=== PATIENT | female | born 1975 | race Caucasian/White ===

== ENCOUNTER → 2017-11-05 | Emergency (ER) | payer OTHER, SELFPAY | PROVIDERS: Emergency Provider Nurse Practitioner; Family Provider Emergency Medicine; Visit Provider Nurse Practitioner | DX: J09.X2 Influenza due to identified novel influenza A virus with other respiratory manifestations (principal) | CPT/HCPCS: 87804; 99201 ==

== ENCOUNTER 2017-11-10 09:26 | Emergency (ER) | payer OTHER, SELFPAY ==
[2017-11-10 10:02] VITALS: BP 148/88; PULSE 98; RESP 20; TEMP 36.8; O2SAT 95; BMI 47.2
[2017-11-10 10:23] LABS: UTC Influenza A Antigen Negative (Negative); UTC Influenza B Antigen Negative (Negative)
--- NOTE | 2017-11-10 10:38 | HMH.EDUTC ---
[facility] Disposition Clinical Impression: Viral illness Disposition: Home, Self-Care Condition on Discharge: Good Instructions: DI for Viral Upper Respiratory Infection -- Adult Additional Instructions: Drink plenty of fluids Follow up with family doctor Return if needed Over the counter Motrin or Tylenol as needed for fever or pain Continue using flonase and bromfed Referrals: Delmer Bullard MD [Primary Care Provider] - Time of Disposition: 10:48 Medical Decision Making Vital Signs: 11/10/17 10:02 Temperature 98.2 F Temperature Source Skin Pulse Rate [Right] 98 H Respiratory Rate 20 Blood Pressure [Right Arm] 148/88 Blood Pressure Mean [Right Arm] 108 Blood Pressure Source [Right Arm] Automatic Cuff Blood Pressure Position [Right Arm] Sitting 02 Sat by Pulse Oximetry 95 Oxygen Delivery Method Room Air - Lab Data Lab Results 11/10/17 10:22: Influenza Type A Ag Negative, Influenza Type B Ag Negative - Cristi Inquiry Pt receiving controlled substance: No Cristi was queried for this patient: No [facility] HPI - General Stated complaint: nose bleeding Mode of Arrival: Ambulatory Source of Information: Patient Limitations: No Limitations Description of Symptoms (Recalled from Triage Doc. by RN): FLU POS LAST WEDNESDAY, FINISHED TAMIFLU TODAY, NOT FEELING BETTER HEENT Symptoms (Recalled from RN notes): No Resp Symptoms (Recalled from RN notes): No Skin Symptoms (Recalled from RN notes): No MS Symptoms (Recalled from RN notes): No Functional Status (Recalled from RN notes): NO - History of Present Illness Provider Complaint: Patient state that she was recently seen and treated for the flu State that she just finished her last dose of Tamiflu State that she came back to work and still had stuffy nose so aileen was worried that she may have still had the flu and wanted her to come down and get checked out Onset (ago): day(s) (7) Radiation: non-radiation Severity: mild Severity scale (1-10): 2 Relieving factors: none Exacerbating factors: none Treatments prior to arrival: NSAID, other (Tamiflu) - Related Data Allergies Allergy/AdvReac Type Severity Reaction Status Date / Time No Known Allergies Allergy Verified 11/10/17 10:07 - Worker's Comp Is this a Worker's Comp case?: No [facility] History - *Social History Alcohol Intake: never - Psychiatric History Expresses thoughts of harming self/others: None Suicide Plan Description: No Plan - Constitutional Reports chills, Reports fever(s) - ENT Reports nasal congestion - Respiratory Reports cough Physical Exam - General General appearance: alert, in no apparent distress - Neck Neck exam: Present: normal inspection, full ROM, trachea midline - Respiratory Respiratory exam: Present: normal lung sounds bilaterally. Absent: respiratory distress - Cardiovascular Cardiovascular exam: Present: regular rate, normal rhythm. Absent: JVD - Abdominal Exam Abdominal exam: Present: soft, normal bowel sounds. Absent: distention, tenderness, guarding - Neurological Exam Neurological exam: Present: alert, oriented X3
--- NOTE | 2017-11-10 10:43 | ED_ITS ---
[facility] Disposition Clinical Impression: Viral illness Disposition: Home, Self-Care Condition on Discharge: Good Instructions: DI for Viral Upper Respiratory Infection -- Adult Additional Instructions: Drink plenty of fluids Follow up with family doctor Return if needed Over the counter Motrin or Tylenol as needed for fever or pain Continue using flonase and bromfed Referrals: Delmer Bullard MD [Primary Care Provider] - Time of Disposition: 10:48 Medical Decision Making Vital Signs: 11/10/17 10:02 Temperature 98.2 F Temperature Source Skin Pulse Rate [Right] 98 H Respiratory Rate 20 Blood Pressure [Right Arm] 148/88 Blood Pressure Mean [Right Arm] 108 Blood Pressure Source [Right Arm] Automatic Cuff Blood Pressure Position [Right Arm] Sitting 02 Sat by Pulse Oximetry 95 Oxygen Delivery Method Room Air - Lab Data Lab Results 11/10/17 10:22: Influenza Type A Ag Negative, Influenza Type B Ag Negative - Cristi Inquiry Pt receiving controlled substance: No Cristi was queried for this patient: No [facility] HPI - General Stated complaint: nose bleeding Mode of Arrival: Ambulatory Source of Information: Patient Limitations: No Limitations Description of Symptoms (Recalled from Triage Doc. by RN): FLU POS LAST WEDNESDAY, FINISHED TAMIFLU TODAY, NOT FEELING BETTER HEENT Symptoms (Recalled from RN notes): No Resp Symptoms (Recalled from RN notes): No Skin Symptoms (Recalled from RN notes): No MS Symptoms (Recalled from RN notes): No Functional Status (Recalled from RN notes): NO - History of Present Illness Provider Complaint: Patient state that she was recently seen and treated for the flu State that she just finished her last dose of Tamiflu State that she came back to work and still had stuffy nose so aileen was worried that she may have still had the flu and wanted her to come down and get checked out Onset (ago): day(s) (7) Radiation: non-radiation Severity: mild Severity scale (1-10): 2 Relieving factors: none Exacerbating factors: none Treatments prior to arrival: NSAID, other (Tamiflu) - Related Data Allergies Allergy/AdvReac Type Severity Reaction Status Date / Time No Known Allergies Allergy Verified 11/10/17 10:07 - Worker's Comp Is this a Worker's Comp case?: No [facility] History - *Social History Alcohol Intake: never - Psychiatric History Expresses thoughts of harming self/others: None Suicide Plan Description: No Plan - Constitutional Reports chills, Reports fever(s) - ENT Reports nasal congestion - Respiratory Reports cough Physical Exam - General General appearance: alert, in no apparent distress - Neck Neck exam: Present: normal inspection, full ROM, trachea midline - Respiratory Respiratory exam: Present: normal lung sounds bilaterally. Absent: respiratory distress - Cardiovascular Cardiovascular exam: Present: regular rate, normal rhythm. Absent: JVD - Abdominal Exam Abdominal exam: Present: soft, normal bowel sounds. Absent: distention, tenderness, guarding - Neurological Exam Neurological exam: Present: alert, oriented X3
== END 2017-11-10 11:02 | disposition home or self-care (01) ==
PROVIDERS: Emergency Provider Nurse Practitioner; Family Provider Emergency Medicine; PCP Emergency Medicine
DX: B34.9 Viral infection, unspecified (principal)
CPT/HCPCS: 87276; 87804; 99202

== ENCOUNTER → 2019-07-25 15:35 | Outpatient (CLI) | payer OTHER, SELFPAY ==
[2019-07-25 15:37] LABS: Microscopic, Urine URINE MICROSCOPIC (MICROSCOPIC)
[2019-07-25 15:55] LABS: Basophils # 0.1 K/mm3 (0-0.2); Basophils % 0.7 % (0.1-2.0); Eosinophils # 0.2 K/mm3 (0.0-0.4); Eosinophils % 2.5 % (0.1-12.0); Hematocrit 40.3 % (37.0-47.0); Lymphocytes # 2.6 K/mm3 (0.7-4.5); Lymphocytes % 27.4 % (10-50); Mean Corpuscular HGB Conc 32.4 g/dL (31.8-35.4); Mean Corpuscular Hemoglobin 28.3 pg (27.0-31.2); Mean Corpuscular Volume 87.3 fl (81-99); Mean Platelet Volume 9.1 fl (7.4-10.4); Monocytes # 0.6 K/mm3 (0.1-1.0); Monocytes % 6.3 % (1.7-9.3); Neutrophils # 5.9 K/mm3 (1.8-7.8); Neutrophils % 63.2 % (37.0-80.0); Platelet Count 249 K/mm3 (142-424); Red Blood Count 4.62 M/mm3 (4.20-5.40); Red Cell Distribution Width 13.8 % (11.5-17.5); White Blood Count 9.4 K/mm3 (4.8-10.8)
[2019-07-25 15:58] LABS: Appearance,Urine CLEAR (Clear); Bilirubin,Urine Negative (Negative); Blood, Urine Negative (Negative); Color,Urine YELLOW (Yellow); Glucose,Urine (UA) Negative (Negative); Ketones,Urine Negative (Negative); Leukocyte Esterase,Urine Negative (Negative); Nitrate,Urine Negative (Negative); Protein,Urine Negative (Negative); Specific Gravity, Urine 1.025 (1.005-1.030); Urobilinogen,Urine 0.2 EU/dl (0.2)
[2019-07-25 16:46] LABS: Anion Gap 13.2 mEq/L (5-15); Blood Urea Nitrogen 15 mg/dL (7-18); Carbon Dioxide 29 mmol/L (21.0-32.0); Chloride 102 mmol/L (98-107); Creatinine,Serum 1.19 mg/dL (0.55-1.02); Estimated Glomerular Filt Rate 50 ml/min (>60); Potassium 4.2 mmoL/L (3.5-5.1); Sodium 140 mmol/L (136-145)
[2019-07-25 16:47] LABS: Calcium 8.9 mg/dL (8.5-10.1); GFR (African American) 60 ML/MIN (>60); Glucose 90 mg/dL (74-106)
[2019-07-25 17:10] LABS: Bacteria,Urine 2+ /lpf; RBC,Urine Occasional #/hpf (0-3)
== END ==
PROVIDERS: Visit Provider Surgery
DX: Z87.19 Personal history of other diseases of the digestive system (principal); Z98.890 Other specified postprocedural states; R10.9 Unspecified abdominal pain
CPT/HCPCS: 36415; 80048; 81001; 85025; 87086; 87088; 87186

== ENCOUNTER → 2019-07-26 10:02 | Outpatient (CLI) | payer OTHER, SELFPAY ==
--- NOTE | 2019-07-26 10:03 | CT_ITS ---
PROCEDURE: CT ABDOMEN PELVIS W CON CLINICAL HISTORY: abdominal pain/ history of abdominal hernia repair Abdominal pain, mid epigastric pain with nausea vomiting COMPARISON: ABDPELW CT ABD PELVIS W/ CONTRAST from 03/06/2016 TECHNIQUE: 75 mL Optiray 350 Axial images obtained with sagittal and coronal reformats. All CT scans at the facility use one or more dose reduction, viz: automated exposure control, ma/kV adjustment per patient size (including targeted exams where dose is matched to indication, i.e. head), or iterative reconstruction technique. FINDINGS: The lung bases are clear. Prior cholecystectomy. Mild fatty liver no acute. No focal liver lesion apparent. The spleen, adrenal glands, and pancreas have an unremarkable appearance. There is a 4 cm right renal cyst. No renal or ureteral calculi. No hydronephrosis. No evidence of appendicitis. No intestinal obstruction or free air. There is an IUD in place. No pelvic mass abnormal fluid collection or focal inflammatory change of the pelvis. There is a sclerotic area in the right ilium posteriorly unchanged and may represent a bone island. IMPRESSION: No acute abdominal or pelvic findings Dictated by: Иван Uribe MD 07/27/2019 05:33 Electronically signed by Иван Uribe MD in [place] 07/27/2019 05:33
== END ==
PROVIDERS: PCP Emergency Medicine; Visit Provider Surgery
DX: Z01.818 Encounter for other preprocedural examination (principal); K46.9 Unspecified abdominal hernia without obstruction or gangrene
CPT/HCPCS: 74177; Q9967

== ENCOUNTER → 2019-08-28 14:48 | Outpatient (CLI) | payer OTHER, SELFPAY ==
[2019-08-28 16:03] LABS: Alanine Aminotransferase 23 U/L (12-78); Albumin Level 3.8 gm/dL (3.4-5.0); Albumin/Globulin Ratio 1.1 (1.1-1.8); Alkaline Phosphatase 68 U/L (46-116); Anion Gap 14.3 mEq/L (5-15); Aspartate Amino Transferase 16 U/L (15-37); Bilirubin,Total 0.3 mg/dL (0.2-1.0); Blood Urea Nitrogen 13 mg/dL (7-18); Calcium 9.3 mg/dL (8.5-10.1); Carbon Dioxide 29 mmol/L (21.0-32.0); Chloride 103 mmol/L (98-107); Creatinine,Serum 0.94 mg/dL (0.55-1.02); Estimated Glomerular Filt Rate 65 ml/min (>60); GFR (African American) 79 ML/MIN (>60); Globulin 3.5 gm/dl (1.3-3.2); Glucose 106 mg/dL (74-106); Potassium 4.3 mmoL/L (3.5-5.1); Sodium 142 mmol/L (136-145); Total Protein,Serum 7.3 gm/dL (6.4-8.2)
== END ==
PROVIDERS: Visit Provider Surgery
DX: R10.33 Periumbilical pain (principal)
CPT/HCPCS: 36415; 80053

== ENCOUNTER → 2019-09-08 16:49 | Outpatient (CLI) | payer OTHER, SELFPAY ==
[2019-09-08 18:07] LABS: Free T4 (Free Thyroxine) 1.22 ng/dl (0.76-1.46); Thyroid Stimulating Hormone 2.32 uIU/ml (0.358-3.740)
== END ==
PROVIDERS: Visit Provider Nurse Practitioner Family
DX: E66.01 Morbid (severe) obesity due to excess calories (principal); Z68.43 Body mass index [BMI] 50.0-59.9, adult
CPT/HCPCS: 84439; 84443

== ENCOUNTER 2020-11-15 09:00 | Emergency (ER) | payer OTHER, SELFPAY ==
[2020-11-15 09:10] VITALS: BP 147/87; PULSE 84; RESP 20; TEMP 36.9; O2SAT 99; BMI 47.5
[2020-11-15 09:40] LABS: Apearance,Urine Clear (Clear); Bilirubin,Urine Negative (Negative); Blood, Urine Negative (Negative); Color,Urine Yellow (Yellow); Glucose,Urine (UA) Negative (Negative); Ketones,Urine Negative (Negative); Protein,Urine Negative (Negative); UTC Leukocyte Esterase,Urine Negative (Negative); UTC Nitrate,Urine Negative (Negative); Urobilinogen,Urine 1 EU/dl (0.2)
--- NOTE | 2020-11-15 09:51 | HMH.EDUTC ---
[facility] [place] Clinical Impression: Dysuria Low back pain Qualifiers: Chronicity: acute Back pain laterality: right Sciatica presence: without sciatica Qualified Code(s): M54.5 - Low back pain Disposition: Home, Self-Care Condition on Discharge: Good Additional Instructions: Drink plenty of fluids. Take tylenol or ibuprofen for pain or fever. Take the medications as directed. Follow up with your regular doctor. GO TO THE ER FOR ANY WORSENING SYMPTOMS The pyridium will make your urine turn orange, this is an expected side effect. It will stain your clothes if it comes into contact with them. Prescriptions: Sulfamethoxazole/Trimethoprim [Bactrim DS tablet] 1 each PO BID 7 Days #14 tab Transmission Status: Received by [id number] Phenazopyridine HCl [Pyridium 200mg Tablet] 200 pow PO TID #6 tab Transmission Status: Received by [id number] Referrals: Delmer Bullard MD [Primary Care Provider] - Time of Disposition: 09:53 Medical Decision Making - Medical Records Medical records reviewed: No: I reviewed the patient's medical records. - Cristi Inquiry Pt receiving controlled substance: No Vital Signs: 11/15/20 09:10 11/15/20 09:57 Temperature 98.5 F 98.5 F Temperature Source Oral Pulse Rate 84 Pulse Rate [Right Brachial] 84 Respiratory Rate 20 20 Blood Pressure 147/87 H Blood Pressure [Right Arm] 147/87 H Blood Pressure Mean [Right Arm] 107 Blood Pressure Source [Right Arm] Automatic Cuff Blood Pressure Position [Right Arm] Sitting 02 Sat by Pulse Oximetry 99 Oxygen Delivery Method Room Air - Lab Data Lab results reviewed: Yes: I reviewed the patient's lab results. Lab Results 11/15/20 09:10: Urine Color Yellow, Urine Appearance Clear, Urine pH 7.0, Ur Specific [place] 1.020, Urine Protein Negative, Urine Glucose (UA) Negative, Urine Ketones Negative, Urine Blood Negative, Urine Nitrate Negative, Urine Bilirubin Negative, Urine Urobilinogen 1, Ur Leukocyte Esterase Negative Orders (Tests/Meds): ORDERS Category Date Time Status Urine Culture Stat Micro 11/15/20 09:13 Received [facility] [place] - General Stated complaint: uti symptoms Time Seen by Provider: 11/15/20 09:15 Mode of Arrival: Ambulatory Source of Information: Patient Limitations: No Limitations Description of Symptoms (Recalled from Triage Doc. by RN): PATIENT C/O BURNING WITH URINATION AND PAIN IN LOWER BACK AND RIGHT FLANK AREA X 2 DAYS HEENT Symptoms (Recalled from RN notes): No Resp Symptoms (Recalled from RN notes): No Skin Symptoms (Recalled from RN notes): No MS Symptoms (Recalled from RN notes): No Functional Status (Recalled from RN notes): WNL - History of Present Illness Provider Complaint: She c/o burning while urinating and right sided low back pain since yesterday. She thinks that she has a uti. She denies any fever or chills. - Related Data Previous Rx's Medication Instructions Recorded metformin 500 mg tablet See Rx Instructions .ROUTE 07/27/20 .COMPLEX #90 tab phentermine 37.5 mg capsule 37.5 mg PO DAILY #30 cap 10/01/20 Phenazopyridine HCl [Pyridium 200 pow PO TID #6 tab 11/15/20 200mg Tablet] Sulfamethoxazole/Trimethoprim 1 each PO BID 7 Days #14 tab 11/15/20 [Bactrim DS tablet] Allergies Allergy/AdvReac Type Severity Reaction Status Date / Time No Known Allergies Allergy Verified 10/01/20 16:04 - Worker's Comp Is this a Worker's Comp case?: No [facility] History - Hepatitis A Screen Drug use history?: No High risk sexual behaviors?: No History of sexually transmitted infection?: No Currently employed?: No Childcare worker?: No Do you have indoor plumbing?: Yes Do you have electricity?: Yes Attestation statement:: This patient has been screened for Hepatitis A risk factors. I have reviewed the patient's past medical history: Yes Medical History: Denies:: Diabetes Mellitus Type 1, Diabetes Mellitus Type 2 [place]
[2020-11-15 09:57] VITALS: BP 147/87; PULSE 84; RESP 20; TEMP 36.9; O2SAT 99
== END 2020-11-15 09:59 | disposition home or self-care (01) ==
PROVIDERS: Emergency Provider Nurse Practitioner Family; PCP Emergency Medicine
DX: R30.0 Dysuria (principal); M54.5 Low back pain
CPT/HCPCS: 81003; 87086; 99202; G0463

== ENCOUNTER → 2021-12-02 06:21 | Outpatient (CLI) | payer OTHER, SELFPAY ==
[2021-12-02 06:50] LABS: Influenza A, PCR Not Detected (NotDetected); Influenza B, PCR Not Detected (NotDetected)
[2021-12-02 07:15] LABS: Coronavirus 19, PCR Detected (NotDetected)
== END ==
PROVIDERS: PCP Emergency Medicine; Visit Provider Emergency Medicine
DX: U07.1 COVID-19 (principal)
CPT/HCPCS: C9803; U0003; U0005

== ENCOUNTER 2022-01-11 10:50 | Emergency (ER) | payer OTHER, SELFPAY ==
[2022-01-11 11:20] VITALS: BP 129/85; PULSE 91; RESP 21; TEMP 37.2; O2SAT 98; BMI 52.4
[2022-01-11 11:33] LABS: UTC Strep Screen (Rapid) Negative (Negative)
--- NOTE | 2022-01-11 11:52 | HMH.EDUTC ---
[facility] [place] Disposition Clinical Impression: Sinusitis Qualifiers: Sinusitis location: maxillary Chronicity: acute Recurrence: non-recurrent Qualified Code(s): J01.00 - Acute maxillary sinusitis, unspecified Disposition: Home, Self-Care Condition on Discharge: Good Instructions: DI for Sinusitis Additional Instructions: Start antibiotic patient to take as ordered for a full length of time even if you feel better. Sinus infections do not get better overnight. It may take 2-3 days to notice much improvement so be sure to use conservative measures as discussed for symptoms. Flonase 1 spray each nostril daily to help with nasal congestion, sinus and ear pressure/information Increase fluids Humidifier/vaporizer as needed Tylenol and ibuprofen as needed for fever or pain. If symptoms do not improve or get worse return or be seen in the ER Follow-up with primary care this week Prescriptions: predniSONE [Prednisone 20mg Tab] 20 mg PO BID #10 tab Transmission Status: Pending to [id number] Azithromycin [Zithromax 250mg tab] 250 mg PO DIRECTED #6 tab Transmission Status: Pending to [id number] Referrals: Delmer Bullard MD [Primary Care Provider] - Time of Disposition: 11:55 Medical Decision Making - Cristi Inquiry Pt receiving controlled substance: No Vital Signs: 01/11/22 11:20 Temperature 98.9 F Temperature Source Oral Pulse Rate [Right Brachial] 91 H Respiratory Rate 21 Blood Pressure [Right Arm] 129/85 Blood Pressure Mean [Right Arm] 99 Blood Pressure Source [Right Arm] Automatic Cuff Blood Pressure Position [Right Arm] Sitting 02 Sat by Pulse Oximetry 98 Oxygen Delivery Method Room Air - Lab Data Lab Results 01/11/22 11:20: Strep Scn Rapid Clinic Negative Orders (Tests/Meds): ED MEDICATIONS Discontinued Medications Generic Name Dose Route Start Last Admin Trade Name Freq PRN Reason Stop Dose Admin Ceftriaxone Sodium 1 gm 01/11/22 11:45 Ceftriaxone 1gm Vial IM 01/11/22 11:46 ONCE ONE Dexamethasone Sodium Phosphate 4 mg 01/11/22 11:45 Dexamethasone 4mg/Ml 1ml Vial IM 01/11/22 11:46 ONCE ONE Lidocaine HCl 0 ml 01/11/22 11:45 Lidocaine 1% 5ml Pf Vial IM 01/11/22 11:46 ONCE ONE ORDERS Category Date Time Status Strep Screen Confirmation Stat Micro 01/11/22 11:20 Received [facility] [place] HPI - General Chief complaint: Urgent Treatment Center Stated complaint: sore throat, cough, congestion Time Seen by Provider: 01/11/22 11:52 Mode of Arrival: Ambulatory Source of Information: Patient Limitations: No Limitations Description of Symptoms (Recalled from Triage Doc. by RN): PATIENT C/O COUGH, RUNNY NOSE, SINUS PRESSURE AND SORE THROAT X 3 DAYS HEENT Symptoms (Recalled from RN notes): Yes Resp Symptoms (Recalled from RN notes): Yes Skin Symptoms (Recalled from RN notes): No MS Symptoms (Recalled from RN notes): No Functional Status (Recalled from RN notes): WNL - History of Present Illness Provider Complaint: 46 yr old female presents for coughing up yellow/green sputum, nasal congestion,sinus pressure, horseness, and sore throat - Related Data Previous Rx's Medication Instructions Recorded amoxicillin 875 mg-potassium 1 tab PO Q12H 10 Days #20 tab 03/10/21 clavulanate 125 mg tablet Amoxicillin/Potassium Clav 1 tab PO Q12H 10 Days #20 tab 07/18/21 [Augmentin 875-125 Tablet] Benzonatate [Tessalon Perle 100mg 100 mg PO TIDP PRN #30 cap 07/18/21 Cap] Ondansetron [Zofran 4mg ODT] 4 mg PO DAILYP PRN #12 tab 07/18/21 methylPREDNISolone [Medrol] 4 mg PO DIRECTED 6 Days #21 07/18/21 packet Azithromycin [Zithromax 250mg 250 mg PO DIRECTED #6 tab 01/11/22 tab] predniSONE [Prednisone 20mg 20 mg PO BID #10 tab 01/11/22 Tab] Allergies Allergy/AdvReac Type Severity Reaction Status Date / Time No Known Allergies Allergy Verified 03/10/21 18:33 - Worker's Comp Is this a Worker's
[2022-01-11 12:05] VITALS: BP 129/85; PULSE 91; RESP 21; TEMP 37.2; O2SAT 98
== END 2022-01-11 12:10 | disposition home or self-care (01) ==
PROVIDERS: Emergency Provider Nurse Practitioner Family; PCP Emergency Medicine
DX: J01.00 Acute maxillary sinusitis, unspecified (principal); Z79.51 Long term (current) use of inhaled steroids; Z79.52 Long term (current) use of systemic steroids; Z79.899 Other long term (current) drug therapy
CPT/HCPCS: 87880; 96372; 99213; G0463; J0696

== ENCOUNTER 2022-11-29 16:22 | Emergency (ER) | payer OTHER, SELFPAY ==
[2022-11-29 16:31] VITALS: BP 143/96; PULSE 89; RESP 17; TEMP 37; O2SAT 98; BMI 52.2
--- NOTE | 2022-11-29 16:33 | EXP.UTC ---
Discharge Plan Disposition Patient Disposition: Home, Self-Care Condition: Good Prescriptions Prescriptions: New amoxicillin 875 mg tablet 875 mg PO Q12H 10 Days Qty: 20 0RF methylprednisolone [Medrol (Ovidio)] 4 mg tablets,dose pack See Rx Instructions .Route .COMPLEX 6 Days Qty: 21 0RF Rx Instructions: taper pack; ofloxacin 0.3 % drops 10 drp otic (ear) BID 14 Days Qty: 10 0RF No Action amoxicillin-pot clavulanate [Augmentin] 875-125 mg tablet 1 tab PO Q12H 10 Days Qty: 20 0RF azithromycin 250 MG tablet 250 mg PO DIRECTED Qty: 6 0RF Rx Instructions: Take two (2) tablets on day #1, then one (1) tablet day #2 thru #5 prednisone 20 MG tablet 20 mg PO BID Qty: 10 0RF benzonatate 100 MG capsule 100 mg PO TIDP PRN (Reason: Cough) Qty: 30 0RF methylprednisolone 4 MG tablets,dose pack 4 mg PO DIRECTED 6 Days Qty: 21 0RF ondansetron 4 MG tablet,disintegrating 4 mg PO DAILYP PRN (Reason: Nausea) Qty: 12 0RF amoxicillin-pot clavulanate 1 EACH tablet 1 tab PO Q12H 10 Days Qty: 20 0RF Referrals Follow up/Referrals: Delmer Bullard MD [Primary Care Provider] - See instructions Activity Restrictions/Add. Instructions Additional Instructions/Restrictions: *Monitor Temp, Over the counter Motrin or Tylenol as directed/as needed Tylenol every 4 hours and Motrin every 6 hours (as long as your family doctor has told you that you can take it) for fever or pain. and straight to ER if unable to lower temp less than 101.0 after medication given *Warm salt water gargles may help to soothe the throat *Throat Lozenges? *Warm fluids like tea with honey may help to soothe the throat? *Sleep elevated *Humidifier/Vaporizer Your throat swab was sent for culture. Those results are typically sent to your primary care. Be sure to follow up in 2-3 days with your family doctor/primary care physician if no improvement so they can review those result and treat if necessary. If you don?t have a primary care doctor, I recommend you get one but in the mean time, you will have to return to a walk in clinic Follow up IMMEDIATELY for new or worsening symptoms or no Noticeable improvement over the next 48-72 hours. 911 for difficulty breathing or swallowing Clinical Impressions Clinical Impression: Otitis media Qualifiers: Otitis media type: unspecified Laterality: right Qualified Code(s): H66.91 - Otitis media, unspecified, right ear Instructions Patient Instructions: Middle Ear Infection, Amoxicillin Discharge ED Provider: Janett Moreira [facility] General Stated complaint: RT ear pain, sore throat Mode of Arrival: Ambulatory Source of Information: Patient Limitations: No Limitations Time Seen by Provider: 11/29/22 16:33 Description of Symptoms (Recalled from Triage Doc. by RN): PATIENT C/O SORE THROAT AND RIGHT EAR PAIN SINCE WEDNESDAY HEENT Symptoms (Recalled from RN notes): Yes Resp Symptoms (Recalled from RN notes): No Skin Symptoms (Recalled from RN notes): No MS Symptoms (Recalled from RN notes): No Functional Status (Recalled from RN notes): WNL History of Present Illness Provider Complaint: Patient states that she has been having sore throat and ear pain since Wednesday that has continued to get worse State that pain in right ear feels like it is going to bust States that pain is shooting from her ear into her throat and has pressure behind it so today when it was still hurting she came in Related Data Previous Rx's Medication Instructions Recorded amoxicillin 875 mg-potassium 1 tab PO Q12H sinusitis 10 days 03/10/21 clavulanate 125 mg tablet #20 tabs (Augmentin) amoxicillin 875 mg-potassium 1 tab PO Q12H 10 days #20 tabs 07/18/21 clavulanate 125 mg tablet benzonatate 100 mg capsule 100 mg PO TIDP PRN Cough #30 caps 07/18/21 methylprednisolone 4 mg tablets in 4 mg PO DIRECTED 6 days #21 07/18/21 a dose pack packets ondansetron 4 m
[2022-11-29 16:37] VITALS: BP 143/96; PULSE 89; RESP 17; TEMP 37; O2SAT 98
== END 2022-11-29 16:50 | disposition home or self-care (01) ==
PROVIDERS: Emergency Provider Nurse Practitioner; PCP Emergency Medicine
DX: H66.91 Otitis media, unspecified, right ear (principal)
CPT/HCPCS: 99212; 99213; G0463

== ENCOUNTER → 2022-12-17 08:44 | Outpatient (CLI) | payer OTHER, SELFPAY ==
--- NOTE | 2022-12-17 08:50 | XR_ITS ---
FINAL REPORT CLINICAL HISTORY: knee pain FINDINGS: Right knee Three views were obtained. There is no acute fracture or dislocation. No joint effusion is identified. The joint spaces appear normal. No soft tissue abnormality is identified. IMPRESSION: No acute process. Reviewed, Interpreted and Dictated by Brandon Lopes MD Transcribed by Laura Kelley Authenticated and [facility]
--- NOTE | 2022-12-17 08:50 | XR_ITS ---
FINAL REPORT CLINICAL HISTORY: knee pain FINDINGS: Left knee Three views were obtained. There is no acute fracture or dislocation. No joint effusion is identified. The joint spaces appear normal. No soft tissue abnormality is identified. IMPRESSION: No acute process. Reviewed, Interpreted and Dictated by Brandon Lopes MD Transcribed by Laura Kelley Authenticated and [facility]
== END ==
PROVIDERS: PCP Emergency Medicine; Visit Provider Orthopaedic Surgery
DX: M25.561 Pain in right knee (principal); M25.562 Pain in left knee
CPT/HCPCS: 73562

== ENCOUNTER 2023-01-19 09:27 | Day surgery (SDC) | payer OTHER, SELFPAY ==
[2023-01-19 09:40] VITALS: BP 161/98; PULSE 94; RESP 18; TEMP 36.7; O2SAT 98; BMI 53.1
[2023-01-19 10:18] VITALS: BP 161/98; PULSE 99; RESP 18; O2SAT 97
[2023-01-19 10:19] VITALS: BP 161/98; PULSE 99; RESP 19; O2SAT 98
[2023-01-19 10:26] VITALS: BP 166/96; PULSE 95; RESP 18; O2SAT 98
--- NOTE | 2023-01-19 10:27 | P.PCN_ITS ---
Procedure Date: 01/19/23 Time: 10:25 Anesthesiologist:: Jason Del Rosario CRNA Complications:: None Pre-procedure Diagnosis:: Osteoarthritis right knee. Chronic right knee pain Post-procedure Diagnosis:: Same. Indications for Procedure:: Patient is a 47-year-old female that comes our clinic today for right genicular nerve block. She has chronic right knee pain that she describes as constant, dull, aching. She has difficulty ambulating any distance. 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 She is on her feet 10 to 12 hours a day. Right knee pain she rates 10/10. Procedure Details:: Right knee genicular block Informed consent was obtained and the risk and benefits of the procedure was explained to the patient. The patient was taken to the procedure room. The right knee was prepped using ChloraPrep. I placed 22-gauge needles into the area of the right superior medial genicular nerve, right superior lateral genicular nerve and right inferior medial genicular nerve. Needle placement was confirmed in AP and lateral views with dye. We then injected bupivacaine 0.25% 3 mL's and Depo-Medrol 25 mg into each area of the right superior medial genicular nerve, right superior lateral genicular nerve and right inferior medial genicular nerve. Patient tolerated the procedure well with no complications. Plan and Disposition:: We will follow-up with her in 2 weeks. Will reevaluate symptoms at that time. Plan and Disposition:: I personally ambulated with the patient for about 5 to 7 minutes 10 minutes post procedure. She reports 0 pain in her right knee with ambulation.
== END 2023-01-19 10:26 | disposition home or self-care (01) ==
PROVIDERS: PCP Emergency Medicine; Visit Provider Nurse Practitioner Family
DX: M17.11 Unilateral primary osteoarthritis, right knee (principal); M25.561 Pain in right knee; G89.29 Other chronic pain
CPT/HCPCS: 64454; J1040

== ENCOUNTER → 2023-02-01 15:29 | Outpatient (CLI) | payer OTHER, SELFPAY ==
[2023-02-01 18:49] LABS: Basophils # 0.1 K/mm3 (0-0.2); Basophils % 1.1 % (0.1-2.0); Eosinophils # 0.2 K/mm3 (0.0-0.4); Hematocrit 47.3 % (37.0-47.0); Hemoglobin 14.9 g/dL (12.2-16.2); Lymphocytes % 26.8 % (10-50); Mean Corpuscular HGB Conc 31.4 g/dL (31.8-35.4); Mean Corpuscular Hemoglobin 29.1 pg (27.0-31.2); Mean Corpuscular Volume 92.6 fl (81-99); Mean Platelet Volume 9.7 fl (7.4-10.4); Monocytes # 0.5 K/mm3 (0.1-1.0); Monocytes % 4.9 % (1.7-9.3); Neutrophils # 7.2 K/mm3 (1.8-7.8); Neutrophils % 65.1 % (37.0-80.0); Platelet Count 310 K/mm3 (142-424); Red Blood Count 5.11 M/mm3 (4.20-5.40)
[2023-02-01 19:13] LABS: Alanine Aminotransferase 31 U/L (12-78); Albumin Level 4.2 g/dl (3.5-5.0); Albumin/Globulin Ratio 1.4 (1.1-1.8); Alkaline Phosphatase 100 U/L (38-126); Anion Gap 11.8 mEq/L (5-15); Aspartate Amino Transferase 31 U/L (14-36); Bilirubin,Total 0.5 mg/dl (0.2-1.3); Blood Urea Nitrogen 12 mg/dl (7-17); Calcium 8.6 mg/dl (8.4-10.2); Carbon Dioxide 31 mmol/L (22.0-30.0); Chloride 98 mmol/L (98-107); Cholesterol 161 mg/dl (140-200); Estimated Glomerular Filt Rate 78 ml/min (>60); GFR (African American) 94 ML/MIN (>60); Globulin 3.1 g/dL (1.3-3.2); Glucose 113 mg/dl (74-100); HDL Cholesterol 40 mg/dl (40-60); Potassium 3.8 mmoL/L (3.5-5.1); Sodium 137 mmol/L (136-145); Total Protein,Serum 7.3 g/dl (6.3-8.2); Triglycerides 180 mg/dl (30-150); VLDL Cholesterol 36 mg/dL (0-40)
[2023-02-01 19:24] LABS: Direct LDL Cholesterol 94.19 mg/dL (100-129)
[2023-02-01 19:26] LABS: Hemoglobin A1C 6.6 % (4.0-6.0)
[2023-02-01 19:31] LABS: Free T4 (Free Thyroxine) 1.26 ng/dl (0.78-2.19)
[2023-02-01 19:33] LABS: 25-OH Vitamin D, Total 21.3 ng/mL (30-100)
[2023-02-01 19:46] LABS: Thyroid Stimulating Hormone 2.45 uIU/mL (0.465-4.68)
== END ==
PROVIDERS: PCP Emergency Medicine; Visit Provider Emergency Medicine
DX: E66.9 Obesity, unspecified (principal); E55.9 Vitamin D deficiency, unspecified; R73.09 Other abnormal glucose; Z68.43 Body mass index [BMI] 50.0-59.9, adult
CPT/HCPCS: 80053; 80061; 82306; 83036; 84439; 84443; 85025

== ENCOUNTER → 2023-05-14 08:30 | Outpatient (CLI) | payer OTHER, SELFPAY | PROVIDERS: PCP Emergency Medicine; Visit Provider Emergency Medicine | DX: G47.33 Obstructive sleep apnea (adult) (pediatric) (principal); R06.83 Snoring | CPT/HCPCS: 95806 ==

== ENCOUNTER 2023-06-23 09:27 | Emergency (ER) | payer OTHER, SELFPAY ==
[2023-06-23 09:27] VITALS: BP 116/44; PULSE 104; RESP 18; TEMP 36.7; O2SAT 94; BMI 52.1
--- NOTE | 2023-06-23 09:41 | EXP.UTC ---
Discharge Plan Disposition Patient Disposition: Home, Self-Care Condition: Good Prescriptions Prescriptions: New azithromycin [Zithromax] 250 mg tablet 250 mg PO UD DOSE PK Qty: 6 0RF Rx Instructions: Take two (2) tablets today, then one (1) tablet days #2 thru #5 benzonatate [benzonatate] 100 mg capsule 100 mg PO TIDP PRN (Reason: Cough) Qty: 30 0RF No Action metformin 500 mg tablet 500 mg PO BID Qty: 60 2RF Ozempic 1 mg/dose (4 mg/3 mL) pen injector 1 mg SQ WEEKLY Qty: 3 1RF cholecalciferol (vitamin D3) 1,250 mcg (50,000 unit) capsule 1,250 mcg PO WEEKLY Qty: 12 3RF Referrals Follow up/Referrals: Delmer Bullard MD [Primary Care Provider] - See instructions Activity Restrictions/Add. Instructions Additional Instructions/Restrictions: Drink plenty of fluids. Take tylenol or ibuprofen for pain or fever. Take the medications as directed. Follow up with your regular doctor. GO TO THE ER FOR ANY WORSENING SYMPTOMS Clinical Impressions Clinical Impression: Sinusitis, Viral illness Stand Alone Forms Stand Alone Forms: Work/School Release Instructions Patient Instructions: Sinusitis, DI for Sinusitis Discharge ED Provider: Franko Morgan [facility] General Stated complaint: congestion, cough Mode of Arrival: Ambulatory Source of Information: Patient Limitations: No Limitations Time Seen by Provider: 06/23/23 09:41 HEENT Symptoms (Recalled from RN notes): Yes Resp Symptoms (Recalled from RN notes): No Skin Symptoms (Recalled from RN notes): No MS Symptoms (Recalled from RN notes): No Functional Status (Recalled from RN notes): wnl History of Present Illness Provider Complaint: Patient complaint of sore throat, head pressure, drainage and cough since yesterday. Related Data Previous Rx's Medication Instructions Recorded cholecalciferol (vitamin D3) 1,250 1,250 mcg PO WEEKLY #12 caps 02/02/23 mcg (50,000 unit) capsule metformin 500 mg tablet 500 mg PO BID #60 tabs 04/30/23 azithromycin 250 mg tablet 250 mg PO UD DOSE PK #6 tabs 06/23/23 (Zithromax) benzonatate 100 mg capsule 100 mg PO TIDP PRN Cough #30 caps 06/23/23 semaglutide 1 mg/dose (4 mg/3 mL) 1 mg (0.75 mL) SQ WEEKLY #3 mL 06/24/23 subcutaneous pen injector (Ozempic) Allergies Allergy/AdvReac Type Severity Reaction Status Date / Time No Known Allergies Allergy Verified 04/30/23 13:30 Worker's Comp Is this a Worker's Comp case?: [facility] Disclaimer: The information contained in this section may have been updated after the patient was seen, as this information can be updated by other users. Surgical History H/O hernia repair History of carpal tunnel release History of cholecystectomy Social History Smoking Status: Never smoker alcohol intake: never substance use type: denies use current occupational status: other Travel in the last 8 weeks: None household members: family housing: house current occupation: [employer] ROS Obtained: Yes All systems reviewed & no additional complaints except as documented Constitutional Constitutional: Reports poor appetite Eyes Eyes: Reports system reviewed and no additional complaints, except as documented ENT Ears, Nose, Mouth, and Throat: Reports as per HPI Cardiovascular Cardiovascular: Reports system reviewed and no additional complaints, except as documented and Denies chest pain Respiratory Respiratory: Denies shortness of breath, Denies chest congestion, Reports cough, Denies stridor and Denies wheezing Gastrointestinal Gastrointestingal: Reports system reviewed and no additional complaints, except as documented; Denies abdominal pain, diarrhea or vomiting Musculoskeletal Musculoskeletal: Reports system reviewed and no additional complaints, except as documented and Denies arthralgias Integumentary/Breasts Skin/
[2023-06-23 09:43] LABS: UTC Strep Screen (Rapid) Negative (Negative)
[2023-06-23 10:02] VITALS: BP 116/44; PULSE 104; RESP 18; TEMP 36.7; O2SAT 94
== END 2023-06-23 10:03 | disposition home or self-care (01) ==
PROVIDERS: Emergency Provider Nurse Practitioner Family; PCP Emergency Medicine
DX: U07.1 COVID-19 (principal)
CPT/HCPCS: 87880; 99212; 99214; G0463

== ENCOUNTER 2023-11-06 11:14 | Emergency (ER) | payer OTHER, SELFPAY ==
[2023-11-06 11:45] VITALS: BP 134/95; PULSE 117; RESP 20; TEMP 37.1; O2SAT 96; BMI 50.3
--- NOTE | 2023-11-06 11:53 | ED_ITS ---
Discharge Plan Disposition Patient Disposition: Home, Self-Care Condition: Good Prescriptions Prescriptions: New ondansetron 4 mg Tablet,Disintegrating 4 mg PO Q8H PRN (Reason: Nausea) Qty: 12 0RF No Action metformin 500 mg tablet 500 mg PO BID Qty: 60 2RF Ozempic 2 mg/dose (8 mg/3 mL) pen injector 2 mg SQ WEEKLY Qty: 3 2RF Referrals Follow up/Referrals: Parag Myers DO [Primary Care Provider] - See instructions Activity Restrictions/Add. Instructions Additional Instructions/Restrictions: Drink plenty of fluids. Take tylenol or ibuprofen for pain or fever. Take the medications as directed. Follow up with your regular doctor. GO TO THE ER FOR ANY WORSENING SYMPTOMS Return a stool sample so it can be analyzed for different infections. Clinical Impressions Clinical Impression: Gastroenteritis Stand Alone Forms Stand Alone Forms: Work/School Release Instructions Patient Instructions: Viral Gastroenteritis, DI for Viral Gastroenteritis -- Adult, Ondansetron Discharge ED Provider: Franko Morgan [facility] General Stated complaint: vomiting, diarrhea Mode of Arrival: Ambulatory Source of Information: Patient Limitations: No Limitations Time Seen by Provider: 11/06/23 11:53 Description of Symptoms (Recalled from Triage Doc. by RN): PATIENT C/O WATERY DIARRHEA, OCCASIONAL VOMITING, STOMACH CRAMPS AND DECREASED PO INTAKE X 5 DAYS HEENT Symptoms (Recalled from RN notes): No Resp Symptoms (Recalled from RN notes): No Skin Symptoms (Recalled from RN notes): No MS Symptoms (Recalled from RN notes): No Functional Status (Recalled from RN notes): WNL History of Present Illness Provider Complaint: She states that for the past 5 days she has had n/v/d. Related Data Previous Rx's Medication Instructions Recorded metformin 500 mg tablet 500 mg PO BID #60 tabs 09/27/23 semaglutide 2 mg/dose (8 mg/3 mL) 2 mg (0.75 mL) SQ WEEKLY Diabetes 10/05/23 subcutaneous pen injector (Ozempic) #3 mL ondansetron 4 mg disintegrating 4 mg PO Q8H PRN Nausea #12 tabs 11/06/23 tablet Allergies Allergy/AdvReac Type Severity Reaction Status Date / Time No Known Allergies Allergy Verified 09/27/23 08:28 Worker's Comp Is this a Worker's Comp case?: No PFSH PFSH Disclaimer: The information contained in this section may have been updated after the patient was seen, as this information can be updated by other users. Surgical History H/O hernia repair History of carpal tunnel release History of cholecystectomy Social History Smoking Status: Never smoker alcohol intake: never substance use type: denies use current occupational status: other Travel in the last 8 weeks: None household members: family housing: house current occupation: [employer] ROS Obtained: Yes All systems reviewed & no additional complaints except as documented Constitutional Constitutional: Denies chills, Denies fever(s) and Reports poor appetite ENT Ears, Nose, Mouth, and Throat: Denies dizziness and Denies sore throat Cardiovascular Cardiovascular: Denies dyspnea Respiratory Respiratory: Denies chest congestion, Denies cough and Denies dyspnea Genitourinary Female Genitourinary: Denies difficulty voiding, Denies dysuria, Denies hematuria, Denies urinary frequency, Denies urinary incontinence, Denies urinary hesitancy and Denies urinary urgency Musculoskeletal Musculoskeletal: Denies arthralgias Integumentary/Breasts Skin/Breast: Denies rash Neurologic Neurologic: Denies dizziness Physical Exam General General appearance: alert and in no apparent distress Head Head exam: atraumatic and normocephalic Eye Eye exam: Present normal appearance, PERRL and EOMI ENT ENT exam: Present normal exam, normal oropharynx, mucous membranes moist, TM's normal bilaterally and normal external ear exam Neck Neck exam: Present normal inspection, full ROM and trachea midline; Absent tenderness, meningismus or lymphadenopathy Chest Chest inspection: Present normal inspection and symmetric chest wall rise; Absent tenderness, rash or abscess Respiratory Respiratory exam: Present normal lung sounds bilaterally; Absent respiratory distress, wheezes or stridor Cardiovascular Cardiovascular exam: Present regular rate and normal rhythm; Absent irregular rhythm, systolic murmur, diastolic murmur or JVD Abdominal Exam Abdominal exam: Present soft and hyperactive bowel sounds; Absent distention, tenderness, guarding, rebound, rigidity, psoas sign, obturator sign, heel tap sign, Singletary's sign, Rovsing's sign or tenderness at McBurney's Point Extremities Exam Extremities exam: Present normal inspection and full ROM; Absent tenderness Back Exam Back exam: Present normal inspection and full ROM; Absent tenderness, CVA tenderness (R) or CVA tenderness (L) Neurological Exam Neurological exam: Present alert, oriented X3 and CN II-XII intact Psychiatric Psychiatric exam: Present normal affect and normal mood Skin Skin exam: Present warm, dry, intact and normal color Lymphatic Lymphatic Findings: no adenopathy Medical Decision Making Medical Records Medical records reviewed: No I reviewed the patient's medical records. Cristi Inquiry Pt receiving controlled substance: No Vital Signs: 11/06/23 11:45 Temperature 98.7 F Temperature Source Oral Pulse Rate [Right Brachial] 117 H Respiratory Rate 20 Blood Pressure [Right Arm] 134/95 H Blood Pressure Mean [Right Arm] 108 Blood Pressure Source [Right Arm] Automatic Cuff Blood Pressure Position [Right Arm] Sitting 02 Sat by Pulse Oximetry 96 Oxygen Delivery Method Room Air Lab Data Lab results reviewed: Yes I reviewed the patient's lab results.
[2023-11-06] MEDS: 0.9 % SODIUM CHLORIDE 1000ML 1,000 ML 999 ML IV (12:29)
[2023-11-06] MEDS: PROMETHAZINE HCL 25MG/ML 1ML VIAL 25 MG IV (12:42)
[2023-11-06 13:28] VITALS: BP 134/95; PULSE 117; RESP 20; TEMP 37.1; O2SAT 96
== END 2023-11-06 13:43 | disposition home or self-care (01) ==
PROVIDERS: Emergency Provider Nurse Practitioner Family; PCP Internal Medicine
DX: A08.4 Viral intestinal infection, unspecified (principal); R11.2 Nausea with vomiting, unspecified; R10.819 Abdominal tenderness, unspecified site
CPT/HCPCS: 96361; 96374; 99212; 99214; G0463

== ENCOUNTER 2024-03-03 17:51 | Outpatient (CLI) | payer OTHER, SELFPAY ==
[2024-03-03 17:55] LABS: Basophils # 0.1 K/mm3 (0-0.2); Basophils % 0.7 % (0.1-2.0); Eosinophils # 0.3 K/mm3 (0.0-0.4); Hematocrit 42.5 % (37.0-47.0); Hemoglobin 13.6 g/dL (12.2-16.2); Lymphocytes # 2.9 K/mm3 (0.7-4.5); Mean Corpuscular HGB Conc 32.1 g/dL (31.8-35.4); Mean Corpuscular Hemoglobin 29.5 pg (27.0-31.2); Mean Platelet Volume 9.6 fl (7.4-10.4); Monocytes # 0.4 K/mm3 (0.1-1.0); Monocytes % 4.4 % (1.7-9.3); Neutrophils # 5.6 K/mm3 (1.8-7.8); Neutrophils % 60.8 % (37.0-80.0); Platelet Count 239 K/mm3 (142-424); Red Blood Count 4.62 M/mm3 (4.20-5.40); Red Cell Distribution Width 14.1 % (11.5-17.5); White Blood Count 9.2 K/mm3 (4.8-10.8)
[2024-03-03 18:23] LABS: Alanine Aminotransferase 30 U/L (12-78); Albumin Level 4.1 g/dl (3.5-5.0); Albumin/Globulin Ratio 1.4 (1.1-1.8); Alkaline Phosphatase 81 U/L (38-126); Anion Gap 12.9 mEq/L (5-15); Aspartate Amino Transferase 35 U/L (14-36); Bilirubin,Total 0.5 mg/dl (0.2-1.3); Blood Urea Nitrogen 12 mg/dl (7-17); Calcium 9.6 mg/dl (8.4-10.2); Carbon Dioxide 27 mmol/L (22.0-30.0); Chloride 104 mmol/L (98-107); Cholesterol 145 mg/dl (140-200); Estimated Glomerular Filt Rate 77 ml/min (>60); GFR (African American) 93 ML/MIN (>60); Globulin 2.9 g/dL (1.3-3.2); Glucose 98 mg/dl (74-100); HDL Cholesterol 49 mg/dl (40-60); Potassium 3.9 mmoL/L (3.5-5.1); Sodium 140 mmol/L (136-145); Triglycerides 110 mg/dl (30-150); VLDL Cholesterol 22 mg/dL (0-40)
[2024-03-03 18:29] LABS: Hemoglobin A1C 5.4 % (4.0-6.0)
[2024-03-03 18:34] LABS: Direct LDL Cholesterol 81.65 mg/dL (100-129)
[2024-03-03 18:35] LABS: 25-OH Vitamin D, Total 32.3 ng/mL (30-100)
[2024-03-03 18:56] LABS: Thyroid Stimulating Hormone 1.93 uIU/mL (0.465-4.68)
== END 2024-03-03 23:59 | disposition home or self-care (01) ==
LOC: LAB.DROPOF 17:51
PROVIDERS: Visit Provider Family Medicine
DX: E55.9 Vitamin D deficiency, unspecified (principal); R73.03 Prediabetes; Z68.43 Body mass index [BMI] 50.0-59.9, adult; Z79.84 Long term (current) use of oral hypoglycemic drugs; Z79.85 Long-term (current) use of injectable non-insulin antidiabetic drugs
CPT/HCPCS: 80053; 80061; 82306; 83036; 84443; 85025

== ENCOUNTER 2024-07-21 14:33 | Emergency (ER) | payer SELFPAY ==
[2024-07-21] VITALS (8 sets, daily range): BP systolic 100–113; BP diastolic 59–83; PULSE 1–91; RESP 13–21; TEMP 36.7–36.9; O2SAT 95–100; BMI 51.2
--- NOTE | 2024-07-21 14:32 | ECG_ITS ---
APPROVED REPORT Exam: Resting ECG HR:95 bpm ECG Measurements Heart Rate 95 AXES MO 152 P 68 QRSd 96 QRS 71 QT 344 T 73 QTc 396 Conclusion SINUS RHYTHM LOW QRS VOLTAGE IN PRECORDIAL LEADS [QRS DEFLECTION < 1.0 mV IN CHEST LEADS] BORDERLINE ECG UNCONFIRMED REPORT Electronically signed by : ENZO CONNER, 07/21/2024 17:04:01
--- NOTE | 2024-07-21 15:08 | PC.NURSE ---
DR WHITE AT BEDSIDE
--- NOTE | 2024-07-21 15:11 | ED_ITS ---
Discharge Plan Disposition Patient Disposition: Home, Self-Care Prescriptions Prescriptions: No Action lisinopril-hydrochlorothiazide 10-12.5 mg tablet 1 tab PO DAILY Qty: 90 2RF metformin 500 mg tablet 500 mg PO BID Qty: 120 2RF Ozempic 2 mg/dose (8 mg/3 mL) pen injector 2 mg SQ WEEKLY Qty: 3 2RF Referrals Follow up/Referrals: Provider,Referral, MD [Primary Care Provider] - See instructions Activity Restrictions/Add. Instructions Additional Instructions/Restrictions: No evidence of a significant injury today. Please return with any significant worsening of your symptoms otherwise you may return to normal activities as you can tolerate. Clinical Impressions Clinical Impression: Electric injury Print Language Print Language: Bulgarian Discharge ED Provider: Percy Slaughter Adult HPI General Chief complaint: Arrhythmia/Palpitations Stated complaint: possible electrocution Time Seen by Provider: 07/21/24 15:08 Mode of Arrival: Ambulatory Source of Information: Patient Limitations: No Limitations Description of Symptoms (Recalled from ER Triage Doc. 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 pt currently reports a painful burning sensation in her left fingers and denies any chest pain at this time History of Present Illness HPI narrative: 49-year-old presents after an electrical injury. She states that she had her right hand on a metal table in her left hand she was following a switch and felt an electrical shock. She states that she grasped with her left hand for a few seconds but subsequently was able to release. No loss of consciousness she has a slight sensation of burning to her left upper extremity but no obvious tissue damage from historical standpoint. She denies any injuries elsewhere. States she otherwise feels fine. No past medical history that she states. Related Data Previous Rx's ?Medication ?Instructions ?Recorded lisinopril 10 1 tab PO DAILY #90 tabs 05/25/24 mg-hydrochlorothiazide 12.5 mg tablet metformin 500 mg tablet 500 mg PO BID #120 tabs 05/25/24 semaglutide 2 mg/dose (8 mg/3 mL) 2 mg (0.75 mL) SQ WEEKLY Diabetes 05/25/24 subcutaneous pen injector (Ozempic) #3 mL Allergies Allergy/AdvReac Type Severity Reaction Status Date / Time No Known Allergies Allergy Verified 05/25/24 15:15 [facility] Disclaimer: The information contained in this section may have been updated after the patient was seen, as this information can be updated by other users. Medical History (Updated 07/21/24 @ 15:11 by Suzette Schultz MD) Dysuria Prediabetes Otitis media Acute conjunctivitis of left eye Sinusitis Viral illness Gastroenteritis Surgical History H/O hernia repair History of carpal tunnel release History of cholecystectomy Social History Smoking Status: Never smoker alcohol intake: never substance use type: denies use current occupational status: other Travel in the last 8 weeks: None household members: family housing: house current occupation: [employer] ROS Obtained: Yes All systems reviewed & no additional complaints except as documented Physical Exam General General appearance: alert and in no apparent distress Respiratory Respiratory exam: Present normal lung sounds bilaterally; Absent respiratory distress Cardiovascular Cardiovascular exam: Present regular rate; Absent normal rhythm Neurological Exam Neurological exam: Present other (Left upper extremity neurovascular exam is normal) Skin Skin exam: Present other (No evidence of burn left upper extremity) Medical Decision Making Cristi Inquiry Pt receiving controlled substance: No Vital Signs: 07/21/24 14:33 07/21/24 15:00 07/21/24 15:31 Temperature 98.4 F Temperature Source Oral Pulse Rate 87 91 H Pulse Rate [Left Radial] 90 Respiratory Rate 16 14 13 Blood Pressure 113/64 100/68 L Blood Pressure [Right Arm] 109/63 L Blood Pressure Mean 74 75 Blood Pressure Mean [Right Arm] 78 Blood Pressure Source [Right Arm] Automatic Cuff Blood Pressure Position [Right Arm] Sitting 02 Sat by Pulse Oximetry 98 95 99 Oxygen Delivery Method Room Air 07/21/24 16:01 07/21/24 16:30 07/21/24 17:00 Temperature Temperature Source Pulse Rate 86 83 1 L Pulse Rate [Left Radial] Respiratory Rate 16 21 16 Blood Pressure 102/59 L 102/60 L 107/60 L Blood Pressure [Right Arm] Blood Pressure Mean 65 71 75 Blood Pressure Mean [Right Arm] Blood Pressure Source [Right Arm] Blood Pressure Position [Right Arm] 02 Sat by Pulse Oximetry 100 97 98 Oxygen Delivery Method Lab Data Lab Results 07/21/24 14:43: WBC 9.5, RBC 4.49, Hgb 13.1, Hct 42.7, MCV 95.1, MCH 29.2, MCHC 30.7 L, RDW 14.1, Plt Count 271, MPV 9.3, Neut % (Auto) 59.5, Lymph % (Auto) 31.0, [place] % (Auto) 6.2, Eos % (Auto) 2.4, Baso % (Auto) 0.9, Neut # (Auto) 5.7, Lymph # (Auto) 3.0, [place] # (Auto) 0.6, Eos # (Auto) 0.2, Baso # (Auto) 0.1, Sodium 139, Potassium 3.7, Chloride 103, Carbon Dioxide 32 H, Anion Gap 7.7, BUN 16, Creatinine 1.30 H, Estimated Creat Clear 42, Estimated GFR 44 L, Est GFR ( Amer) 53 L, Glucose 96, Calcium 8.9, Total Bilirubin 0.6, AST 34, ALT 34, Alkaline Phosphatase 59, Total Creatine Kinase 90, Total Protein 7.7, Albumin 4.2, Globulin 3.5 H, Albumin/Globulin Ratio 1.2 07/21/24 14:43 07/21/24 14:43 Orders (Tests/Meds): ORDERS Category Date Time Status CK [Creatine Kinase] Stat Lab 07/21/24 14:43 Completed Complete Blood Count Auto Diff Stat Lab 07/21/24 14:43 Completed Comprehensive Metabolic Panel Stat Lab 07/21/24 14:43 Completed ECG Data Tracing #1: I reviewed this ECG and interpreted as documented below: Ventricular rate of 95 sinus rhythm no acute ischemic changes noted normal axis no significant again duction abnormality Medical Decision Narrative: 49-year-old with low voltage injury to the left upper extremity and electrical injury has some paresthesias likely mild soft tissue injury and nerve related injury. I expect full recovery in this particular patient she had no signs or symptoms of a significant arrhythmia during the initial episode. EKG was performed which was unremarkable. She will be on telemetry monitoring getting basic blood work including CK and will reassess. Will give her short period of observation. After 3 hours of observation no significant arrhythmia patient is essentially asymptomatic at this point other than some mild discomfort in her hand labs unremarkable she is stable for outpatient management and may return to activities as normal and as she can tolerate. Return precautions have is as she was discharged in stable condition Critical Care Critical Care Time Critical Care Time: No
[2024-07-21 15:13] LABS: Albumin Level 4.2 g/dl (3.5-5.0); Basophils # 0.1 K/mm3 (0-0.2); Basophils % 0.9 % (0.1-2.0); Chloride 103 mmol/L (98-107); Eosinophils # 0.2 K/mm3 (0.0-0.4); Eosinophils % 2.4 % (0.1-12.0); Hematocrit 42.7 % (37.0-47.0); Hemoglobin 13.1 g/dL (12.2-16.2); Mean Corpuscular HGB Conc 30.7 g/dL (31.8-35.4); Mean Corpuscular Hemoglobin 29.2 pg (27.0-31.2); Mean Corpuscular Volume 95.1 fl (81-99); Mean Platelet Volume 9.3 fl (7.4-10.4); Monocytes # 0.6 K/mm3 (0.1-1.0); Monocytes % 6.2 % (1.7-9.3); Neutrophils # 5.7 K/mm3 (1.8-7.8); Neutrophils % 59.5 % (37.0-80.0); Platelet Count 271 K/mm3 (142-424); Potassium 3.7 mmoL/L (3.5-5.1); Red Blood Count 4.49 M/mm3 (4.20-5.40); Red Cell Distribution Width 14.1 % (11.5-17.5); Sodium 139 mmol/L (136-145); White Blood Count 9.5 K/mm3 (4.8-10.8)
[2024-07-21 15:15] LABS: Alanine Aminotransferase 34 U/L (12-78); Aspartate Amino Transferase 34 U/L (14-36); Blood Urea Nitrogen 16 mg/dl (7-17); Creatinine Clearance Estimated 42 mL/min (50-200); Estimated Glomerular Filt Rate 44 ml/min (>60); GFR (African American) 53 ML/MIN (>60)
[2024-07-21 15:16] LABS: Albumin/Globulin Ratio 1.2 (1.1-1.8); Alkaline Phosphatase 59 U/L (38-126); Anion Gap 7.7 mEq/L (5-15); Bilirubin,Total 0.6 mg/dl (0.2-1.3); Calcium 8.9 mg/dl (8.4-10.2); Carbon Dioxide 32 mmol/L (22.0-30.0); Creatine Kinase 90 U/L (30-135); Globulin 3.5 g/dL (1.3-3.2); Glucose 96 mg/dl (74-100); Total Protein,Serum 7.7 g/dl (6.3-8.2)
== END 2024-07-21 17:39 | disposition home or self-care (01) ==
PROVIDERS: Emergency Provider Emergency Medicine
DX: T75.4XXA Electrocution, initial encounter (principal); W86.8XXA Exposure to other electric current, initial encounter
CPT/HCPCS: 80053; 82550; 85025; 93005; 99283

== ENCOUNTER 2024-11-09 08:43 | Emergency (ER) | payer OTHER, SELFPAY ==
[2024-11-09 08:56] VITALS: BP 149/94; PULSE 110; RESP 20; TEMP 36.9; O2SAT 97; BMI 50.6
--- NOTE | 2024-11-09 09:04 | EXP.UTC ---
Discharge Plan Disposition Patient Disposition: Home, Self-Care Condition: Good Prescriptions Prescriptions: New ondansetron 4 mg Tablet,Disintegrating 4 mg PO Q8H PRN (Reason: Nausea) Qty: 12 0RF No Action lisinopril-hydrochlorothiazide 10-12.5 mg tablet 1 tab PO DAILY Qty: 90 2RF metformin 500 mg tablet 500 mg PO BID Qty: 120 2RF Ozempic 2 mg/dose (8 mg/3 mL) pen injector 2 mg SQ WEEKLY Qty: 3 2RF Referrals Follow up/Referrals: Ce Esparza APRN [Primary Care Provider] - See instructions Activity Restrictions/Add. Instructions Additional Instructions/Restrictions: Drink plenty of fluids. Take tylenol or ibuprofen for pain or fever. Take the medications as directed. Follow up with your regular doctor. GO TO THE ER FOR ANY WORSENING SYMPTOMS Clinical Impressions Clinical Impression: Gastroenteritis Instructions Patient Instructions: Viral Gastroenteritis, DI for Viral Gastroenteritis -- Adult, Ondansetron Print Language Print Language: Azeri Discharge ED Provider: Franko Morgan [facility] General Stated complaint: vomiting, diarrhea Mode of Arrival: Ambulatory Source of Information: Patient Time Seen by Provider: 11/09/24 09:04 Description of Symptoms (Recalled from Triage Doc. by RN): N/V/D, THINKS SHE IS DEHYDRATED FROM HER OZEMPIC SHOTS, ATE A SALAD AND HAS BEEN SICK EVER SINCE HEENT Symptoms (Recalled from RN notes): No Resp Symptoms (Recalled from RN notes): No Skin Symptoms (Recalled from RN notes): No MS Symptoms (Recalled from RN notes): No Functional Status (Recalled from RN notes): WNL History of Present Illness Provider Complaint: She states that since yesterday she has had n/v/d. She took her weight loss shot yesterday and that is what she thinks has triggered her symptoms. She denies any abdominal pain. Related Data Previous Rx's ?Medication ?Instructions ?Recorded lisinopril 10 1 tab PO DAILY #90 tabs 05/25/24 mg-hydrochlorothiazide 12.5 mg tablet metformin 500 mg tablet 500 mg PO BID #120 tabs 05/25/24 semaglutide 2 mg/dose (8 mg/3 mL) 2 mg (0.75 mL) SQ WEEKLY Diabetes 08/18/24 subcutaneous pen injector (Ozempic) #3 mL ondansetron 4 mg disintegrating 4 mg PO Q8H PRN Nausea #12 tabs 11/09/24 tablet Allergies Allergy/AdvReac Type Severity Reaction Status Date / Time No Known Allergies Allergy Verified 07/27/24 15:43 Worker's Comp Is this a Worker's Comp case?: No [facility] Disclaimer: The information contained in this section may have been updated after the patient was seen, as this information can be updated by other users. Medical History Dysuria Prediabetes Otitis media Acute conjunctivitis of left eye Sinusitis Viral illness Gastroenteritis Surgical History H/O hernia repair History of carpal tunnel release History of cholecystectomy Social History Smoking Status: Never smoker alcohol intake: never substance use type: denies use current occupational status: other Travel in the last 8 weeks: None household members: family housing: house current occupation: [employer] Have you lived/traveled outside [place] in past 30 days?: No Contact w/someone who lives/traveled outside [place] past 30 days?: No Exposure to someone with infectious disease in past 14 days?: No Do you have a fever (greater than 100.4 F or 38 C)?: No Have you tested positive for COVID-19: No Exposed to someone with COVID-19 in past 14 days?: No Do you have a sore throat?: No Do you have a cough?: No Do you have any weakness?: No Do you have any diarrhea?: Yes Are you experiencing any unusual bleeding?: No Do you have any muscle aches/pain?: No Do you have any abdominal pain?: No Are you experiencing loss of taste or smell?: No ROS Obtained: Yes All systems reviewed & no additional complaints except as documented Constitutional Constitutional: Denies chills, Denies fever(s) and Reports poor appetite ENT Ears, Nose, Mouth, and Throat: Denies dizziness and Denies sore throat Cardiovascular Cardiovascular: Denies dyspnea Respiratory Respiratory: Denies chest congestion, Denies cough and Denies dyspnea Gastrointestinal Gastrointestingal: Reports as per HPI Genitourinary Female Genitourinary: Denies difficulty voiding, Denies dysuria, Denies hematuria, Denies urinary frequency, Denies urinary incontinence, Denies urinary hesitancy and Denies urinary urgency Musculoskeletal Musculoskeletal: Denies arthralgias Integumentary/Breasts Skin/Breast: Denies rash Neurologic Neurologic: Denies dizziness Physical Exam General General appearance: alert and in no apparent distress Head Head exam: atraumatic and normocephalic Eye Eye exam: Present normal appearance, PERRL and EOMI ENT ENT exam: Present normal exam, normal oropharynx, mucous membranes moist, TM's normal bilaterally and normal external ear exam Neck Neck exam: Present normal inspection, full ROM and trachea midline; Absent tenderness, meningismus or lymphadenopathy Chest Chest inspection: Present normal inspection and symmetric chest wall rise; Absent tenderness, rash or abscess Respiratory Respiratory exam: Present normal lung sounds bilaterally; Absent respiratory distress, wheezes or stridor Cardiovascular Cardiovascular exam: Present regular rate and normal rhythm; Absent irregular rhythm, systolic murmur, diastolic murmur or JVD Abdominal Exam Abdominal exam: Present soft and hyperactive bowel sounds; Absent distention, tenderness, guarding, rebound, rigidity, psoas sign, obturator sign, heel tap sign, Singletary's sign, Rovsing's sign or tenderness at McBurney's Point Extremities Exam Extremities exam: Present normal inspection and full ROM; Absent tenderness Back Exam Back exam: Present normal inspection and full ROM; Absent tenderness, CVA tenderness (R) or CVA tenderness (L) Neurological Exam Neurological exam: Present alert, oriented X3 and CN II-XII intact Psychiatric Psychiatric exam: Present normal affect and normal mood Skin Skin exam: Present warm, dry, intact and normal color Lymphatic Lymphatic Findings: no adenopathy Medical Decision Making Medical Records Medical records reviewed: No I reviewed the patient's medical records. Screening: Per USPSTF and CDC recommendations, given the prevalence of disease in our region, it is our hospital?s policy to screen for HIV and viral Hepatitis for all patients aged 18 and over and those with ongoing risk factors. Cristi Inquiry Pt receiving controlled substance: No Vital Signs: 11/09/24 08:56 Temperature 98.4 F Temperature Source Oral Pulse Rate [Left Brachial] 110 H Respiratory Rate 20 Blood Pressure [Left Arm] 149/94 H Blood Pressure Mean [Left Arm] 112 02 Sat by Pulse Oximetry 97 Lab Data Lab results reviewed: Yes I reviewed the patient's lab results. 11/09/24 09:19 11/09/24 09:19
[2024-11-09] MEDS: 0.9 % SODIUM CHLORIDE 1000ML 1,000 ML 999 ML IV (09:18)
[2024-11-09 09:41] LABS: Basophils % 0.3 % (0.1-2.0); Eosinophils # 2.3 K/mm3 (0.0-0.4); Eosinophils % 22.5 % (0.1-12.0); Hematocrit 47.1 % (37.0-47.0); Hemoglobin 14.7 g/dL (12.2-16.2); Lymphocytes # 2.1 K/mm3 (0.7-4.5); Lymphocytes % 20.6 % (10-50); Mean Corpuscular HGB Conc 31.2 g/dL (31.8-35.4); Mean Corpuscular Hemoglobin 29.3 pg (27.0-31.2); Mean Corpuscular Volume 93.8 fl (81-99); Mean Platelet Volume 10.7 fl (7.4-10.4); Monocytes # 0.5 K/mm3 (0.1-1.0); Monocytes % 4.9 % (1.7-9.3); Neutrophils # 5.3 K/mm3 (1.8-7.8); Neutrophils % 51.4 % (37.0-80.0); Platelet Count 236 K/mm3 (142-424); Red Blood Count 5.02 M/mm3 (4.20-5.40); Red Cell Distribution Width 13.2 % (11.5-17.5); White Blood Count 10.3 K/mm3 (4.8-10.8)
[2024-11-09 10:57] LABS: Alanine Aminotransferase 28 U/L (12-78); Albumin Level 4.4 g/dl (3.5-5.0); Albumin/Globulin Ratio 1.4 (1.1-1.8); Alkaline Phosphatase 55 U/L (38-126); Amylase 53 U/L (30-110); Aspartate Amino Transferase 41 U/L (14-36); Blood Urea Nitrogen 12 mg/dl (7-17); Calcium 9.7 mg/dl (8.4-10.2); Carbon Dioxide 27 mmol/L (22.0-30.0); Chloride 103 mmol/L (98-107); Creatinine Clearance Estimated 52 mL/min (50-200); Estimated Glomerular Filt Rate 53 ml/min (>60); GFR (African American) 64 ML/MIN (>60); Globulin 3.1 g/dL (1.3-3.2); Glucose 112 mg/dl (74-100); Lipase 136 U/L (23-300); Sodium 137 mmol/L (136-145); Total Protein,Serum 7.5 g/dl (6.3-8.2)
[2024-11-09 11:05] VITALS: BP 149/94; PULSE 110; RESP 20; TEMP 36.9
[2024-11-09 11:22] LABS: Anion Gap 12.3 mEq/L (5-15); Potassium 5.3 mmoL/L (3.5-5.1)
== END 2024-11-09 11:05 | disposition home or self-care (01) ==
PROVIDERS: Emergency Provider Nurse Practitioner Family; PCP Family Medicine
DX: K52.9 Noninfective gastroenteritis and colitis, unspecified (principal)
CPT/HCPCS: 80053; 82150; 83690; 85025; 96360; 99213; G0381; J7030

== ENCOUNTER 2024-12-10 10:13 | Emergency (ER) | payer OTHER, SELFPAY ==
[2024-12-10 10:35] VITALS: BP 147/86; PULSE 93; RESP 22; TEMP 36.9; O2SAT 95; BMI 52.7
--- NOTE | 2024-12-10 11:11 | ED_ITS ---
Discharge Plan Disposition Patient Disposition: Home, Self-Care Condition: Good Prescriptions Prescriptions: New azithromycin [Zithromax Z-Ovidio] 250 mg tablet See Rx Instructions .ROUTE .COMPLEX 5 Days Qty: 6 0RF Rx Instructions: For 250 mg dose pack: take 500 mg today (day 1), then 250 mg for 4 days (days 2-5) benzonatate 100 mg capsule 100 mg PO TID PRN (Reason: cough) Qty: 30 0RF methylprednisolone [Medrol (Ovidio)] 4 mg tablets,dose pack See Rx Instructions .Route .COMPLEX 6 Days Qty: 21 0RF Rx Instructions: taper pack; No Action lisinopril-hydrochlorothiazide 10-12.5 mg tablet 1 tab PO DAILY Qty: 90 2RF Referrals Follow up/Referrals: Ce Esparza APRN [Primary Care Provider] - See instructions Activity Restrictions/Add. Instructions Additional Instructions/Restrictions: * Start antibiotic today. Be sure to complete entire prescription even if feeling better * Monitor temp. Tylenol every 4 hours as needed and / or ibuprofen every 6 hours as needed ( As long as your primary care physician has told you that it ok to take both. For fever/aches/pains ER if no less than 101 despite Tylenol or Motrin * Humidifier/vaporizer or hot steamy shower * *Tessalon Perles will not cause drowsiness but use at bedtime to help stop cough so that you may get some rest. *Start steroid today. Helps with inflammation therefore, cough and wheezing. Follow directions on the package. Reviewed side effects. Patient reports taking them before. Follow up IMMEDIATELY for new or worsening of symptoms OR no noticeable improvement over the next 48-72 hours. 911 immediately for any life threatening symptoms such as chest pain or difficulty breathing Clinical Impressions Clinical Impression: Sinusitis Instructions Patient Instructions: DI for Sinusitis, Cough Print Language Print Language: [place] Discharge ED Provider: Janett Moreira [facility] General Stated complaint: cough,drainage Mode of Arrival: Ambulatory Source of Information: Patient Limitations: No Limitations Time Seen by Provider: 12/10/24 11:11 Description of Symptoms (Recalled from Triage Doc. by RN): PATIENT C/O COUGH X 2 DAYS HEENT Symptoms (Recalled from RN notes): No Resp Symptoms (Recalled from RN notes): Yes Skin Symptoms (Recalled from RN notes): No MS Symptoms (Recalled from RN notes): No Functional Status (Recalled from RN notes): WNL History of Present Illness Provider Complaint: Pt states that she has been having sinus congestion and pressure, cough and feeling pressure behind her eyes states that she has tried several OTC medications but nothing has helped so today she came in to get it checked Related Data Previous Rx's ?Medication ?Instructions ?Recorded lisinopril 10 1 tab PO DAILY #90 tabs 05/25/24 mg-hydrochlorothiazide 12.5 mg tablet azithromycin 250 mg tablet See Rx Instructions PO .COMPLEX 5 12/10/24 (Zithromax Z-Ovidio) days #6 tabs benzonatate 100 mg capsule 100 mg PO TID PRN cough #30 caps 12/10/24 methylprednisolone 4 mg tablets in See Rx Instructions .Route 12/10/24 a dose pack (Medrol (Ovidio)) .COMPLEX 6 days #21 tabs Allergies Allergy/AdvReac Type Severity Reaction Status Date / Time No Known Allergies Allergy Verified 07/27/24 15:43 Worker's Comp Is this a Worker's Comp case?: No [facility] Disclaimer: The information contained in this section may have been updated after the patient was seen, as this information can be updated by other users. Medical History Dysuria Prediabetes Otitis media Acute conjunctivitis of left eye Sinusitis Viral illness Gastroenteritis Surgical History H/O hernia repair History of carpal tunnel release History of cholecystectomy Social History Smoking Status: Never smoker alcohol intake: never substance use type: denies use current occupational status: other Travel in the last 8 weeks: None household members: family housing: house current occupation: cafeteria Have you lived/traveled outside US in past 30 days?: No Contact w/someone who lives/traveled outside US past 30 days?: No Exposure to someone with infectious disease in past 14 days?: No Do you have a fever (greater than 100.4 F or 38 C)?: No Have you tested positive for COVID-19: No Exposed to someone with COVID-19 in past 14 days?: No Do you have a sore throat?: No Do you have a cough?: Yes Do you have any weakness?: No Do you have any diarrhea?: No Are you experiencing any unusual bleeding?: No Do you have any muscle aches/pain?: No Do you have any abdominal pain?: No Are you experiencing loss of taste or smell?: No ROS Obtained: Yes All systems reviewed & no additional complaints except as documented and Yes Systems reviewed as appropriate & no additional complaints except as documented Constitutional Constitutional: Reports system reviewed and no additional complaints, except as documented, Reports as per HPI and Reports headache(s) ENT Ears, Nose, Mouth, and Throat: Reports system reviewed and no additional compl aints, except as documented, Reports as per HPI, Reports headache(s), Reports sinus pain and Reports sinus pressure Cardiovascular Cardiovascular: Reports system reviewed and no additional complaints, except as documented and Reports as per HPI Respiratory Respiratory: Reports system reviewed and no additional complaints, except as documented, Reports as per HPI and Reports cough Gastrointestinal Gastrointestingal: Reports system reviewed and no additional complaints, except as documented and as per HPI Genitourinary Female Genitourinary: Reports system reviewed and no additional complaints, except as documented and Reports as per HPI Neurologic Neurologic: Reports headache(s) Physical Exam General General appearance: alert and in no apparent distress ENT ENT exam: Present mucous membranes moist Expanded ENT Exam Nose exam: Present sinus tenderness Throat exam: Present other (PND noted) Chest Chest inspection: Present normal inspection and symmetric chest wall rise Respiratory Respiratory exam: Present normal lung sounds bilaterally; Absent respiratory distress or wheezes Cardiovascular Cardiovascular exam: Present regular rate, normal rhythm and normal heart sounds Neurological Exam Neurological exam: Present alert, oriented X3 and normal gait Medical Decision Making Medical Records Screening: Per USPSTF and CDC recommendations, given the prevalence of disease in our region, it is our hospital?s policy to screen for HIV and viral Hepatitis for all patients aged 18 and over and those with ongoing risk factors. Cristi Inquiry Pt receiving controlled substance: No Cristi was queried for this patient: No Vital Signs: 12/10/24 10:35 Temperature 98.4 F Temperature Source Oral Pulse Rate [Left Brachial] 93 H Respiratory Rate 22 Blood Pressure [Left Arm] 147/86 H Blood Pressure Mean [Left Arm] 106 Blood Pressure Source [Left Arm] Automatic Cuff Blood Pressure Position [Left Arm] Sitting 02 Sat by Pulse Oximetry 95 Oxygen Delivery Method Room Air Medical Decision Narrative: Patient states that she has taken azithromycin and medrol in the past without complication or reactions
[2024-12-10 11:26] VITALS: BP 147/86; PULSE 93; RESP 22; TEMP 36.9; O2SAT 95
== END 2024-12-10 11:29 | disposition home or self-care (01) ==
PROVIDERS: Emergency Provider Nurse Practitioner; PCP Family Medicine
DX: J01.90 Acute sinusitis, unspecified (principal)
CPT/HCPCS: 99212; G0381

== ENCOUNTER 2025-02-24 09:50 | Emergency (ER) | payer OTHER, SELFPAY ==
[2025-02-24 09:58] VITALS: BP 122/96; PULSE 102; RESP 20; TEMP 36.6; O2SAT 98; BMI 53.0
--- NOTE | 2025-02-24 10:01 | XR_ITS ---
PROCEDURE INFORMATION: Exam: XR Right Ankle Exam date and time: 02/24/2025 10:07 AM Age: 49 years old Clinical indication: Injury or trauma; Fall; Blunt trauma; Ankle; Right; Additional info: Rolled right foot, pain right ankle TECHNIQUE: Imaging protocol: Radiologic exam of the right ankle. Views: 1 or 2 views. COMPARISON: CR XR FOOT RT 2V 02/24/2025 10:07 AM FINDINGS: Bones/joints: Normal. Soft tissues: Normal. IMPRESSION: No acute findings.
--- NOTE | 2025-02-24 10:01 | XR_ITS ---
PROCEDURE INFORMATION: Exam: XR Right Foot Exam date and time: 02/24/2025 10:07 AM Age: 49 years old Clinical indication: Pain; Foot; Right; Additional info: Rolled right ankle, pain lateral foot TECHNIQUE: Imaging protocol: Radiologic exam of the right foot. Views: 1 or 2 views. COMPARISON: CR XR FOOT RT 2V 02/24/2025 10:07 AM FINDINGS: Bones/joints: Normal. Soft tissues: Normal. IMPRESSION: No acute findings.
--- NOTE | 2025-02-24 10:02 | ED_ITS ---
Discharge Plan Disposition Patient Disposition: Home, Self-Care Prescriptions Prescriptions: No Action metformin 500 mg tablet 500 mg PO BID Qty: 60 1RF lisinopril-hydrochlorothiazide 10-12.5 mg tablet 1 tab PO DAILY Qty: 90 2RF Ozempic 2 mg/dose (8 mg/3 mL) pen injector 2 mg SQ QWEEK Qty: 3 1RF Referrals Follow up/Referrals: Ce Esparza APRN [Primary Care Provider] - See instructions Carlos Gandara DO [Staff Physician] - See instructions Activity Restrictions/Add. Instructions Additional Instructions/Restrictions: You were seen in the emergency department found to have a right ankle sprain. You are being provided a walking boot to use when you are walking for comfort. You are also being provided a referral to Dr. Gandara with orthopedic surgery. If your symptoms do not improve over the next week, call the orthopedic office to schedule a follow-up appointment. Continue to take Tylenol and ibuprofen to help with symptoms. If you develop any new or worsening symptoms, or if you become concerned for your health for any reason, return to the emergency department for evaluation Clinical Impressions Clinical Impression: Right ankle sprain Instructions Patient Instructions: DI for Ankle Sprain Print Language Print Language: Urdu Discharge ED Provider: Zi Ji General Adult HPI General Chief complaint: Extremity Injury, Lower Stated complaint: AO 02/23 right ankle pain Time Seen by Provider: 02/24/25 09:57 Mode of Arrival: Ambulatory Source of Information: Patient Limitations: No Limitations History of Present Illness HPI narrative: aLshawn Carter is a 49-year-old female with no significant past medical history who presents to the emergency department with pain in her right foot/ankle. Patient states that yesterday she was weed eating when she rolled her right ankle, inverting the ankle. She states that she has been ambulatory since then but has had pain over the lateral aspect of the foot to the arch of her foot. She states that she is noted a little bit of swelling in this area but it does not track up the leg. She has been ambulatory since then but is painful to walk. She states that she has been wearing shoes this morning and the arch supports seems to help her symptoms. She is on her feet a lot at work and wants to make sure there is nothing serious going on. Related Data Previous Rx's ?Medication ?Instructions ?Recorded lisinopril 10 1 tab PO DAILY #90 tabs 12/25/24 mg-hydrochlorothiazide 12.5 mg tablet metformin 500 mg tablet 500 mg PO BID #60 tabs 12/25/24 semaglutide 2 mg/dose (8 mg/3 mL) 2 mg (0.75 mL) SQ QWEEK #3 mL 02/20/25 subcutaneous pen injector (Ozempic) Allergies Allergy/AdvReac Type Severity Reaction Status Date / Time No Known Allergies Allergy Verified 12/22/24 10:51 [facility] Disclaimer: The information contained in this section may have been updated after the patient was seen, as this information can be updated by other users. Medical History Dysuria Prediabetes Otitis media Acute conjunctivitis of left eye Sinusitis Viral illness Gastroenteritis Surgical History H/O hernia repair History of carpal tunnel release History of cholecystectomy Social History Smoking Status: Never smoker alcohol intake: never substance use type: denies use current occupational status: other Travel in the last 8 weeks: None household members: family housing: house current occupation: cafeteria Have you lived/traveled outside US in past 30 days?: No Contact w/someone who lives/traveled outside US past 30 days?: No Exposure to someone with infectious disease in past 14 days?: No Do you have a fever (greater than 100.4 F or 38 C)?: No Have you tested positive for COVID-19: No Exposed to someone with COVID-19 in past 14 days?: No Do you have a sore throat?: No Do you have a cough?: No Do you have any weakness?: No Do you have any diarrhea?: No Are you experiencing any unusual bleeding?: No Do you have any muscle aches/pain?: No Do you have any abdominal pain?: No Are you experiencing loss of taste or smell?: No Other Medical History Have you received the Flu Vaccine for this season: No Have you received the Pneumonia Vaccine: Yes ROS Obtained: Yes Systems reviewed as appropriate & no additional complaints except as documented Physical Exam General General appearance: alert and in no apparent distress Head Head exam: atraumatic Eye Eye exam: Present normal appearance ENT ENT exam: Present normal external ear exam Neck Neck exam: Present full ROM Chest Chest inspection: Present symmetric chest wall rise Respiratory Respiratory exam: Present normal lung sounds bilaterally; Absent respiratory distress Cardiovascular Cardiovascular exam: Present regular rate and normal rhythm Abdominal Exam Abdominal exam: Present soft; Absent tenderness or guarding Extremities Exam Extremities exam: Present normal inspection Expanded Lower Extremity Exam Right: Comment: Tenderness to palpation over the right lateral proximal foot with tenderness in this area. Mild tenderness over the posterior lateral malleolus. 2+ DP and PT pulses. Sensation and motor function grossly intact throughout the entire foot. No tenderness over the insertion site of the plantar fascia to the heel. Back Exam Back exam: Present normal inspection Neurological Exam Neurological exam: Present alert and oriented X3 Psychiatric Psychiatric exam: Present normal affect Skin Skin exam: Present warm and dry Medical Decision Making Medical Records Screening: Per USPSTF and CDC recommendations, given the prevalence of disease in our region, it is our hospital?s policy to screen for HIV and viral Hepatitis for all patients aged 18 and over and those with ongoing risk factors. Cristi Inquiry Pt receiving controlled substance: No Vital Signs: 02/24/25 09:58 02/24/25 10:31 02/24/25 10:39 Temperature 97.8 F 97.8 F Temperature Source Oral Oral Pulse Rate 87 88 Pulse Rate [Left Radial] 102 H Respiratory Rate 20 16 17 Blood Pressure 118/74 118/74 Blood Pressure [Right Arm] 122/96 H Blood Pressure Mean [Right Arm] 104 02 Sat by Pulse Oximetry 98 99 Oxygen Delivery Method Room Air Room Air Room Air Orders (Tests/Meds): ED MEDICATIONS Discontinued Medications Generic Name Dose Route Start Last Admin Trade Name Freq PRN Reason Stop Dose Admin Acetaminophen 1,000 mg 02/24/25 10:02 02/24/25 10:30 Acetaminophen 500mg Tab PO 02/24/25 10:03 1,000 mg ONCE ONE Administration ORDERS Category Date Time Status Ankle XR - Right 2 Views [XR ankle RT 2V] Stat Exams 02/24/25 10:01 Completed Foot XR right 2 views [XR foot RT 2V] Stat Exams 02/24/25 10:01 Completed Medical Decision Narrative: Lashawn Carter is a 49-year-old female with no significant past medical history who presents to the emergency department with pain in her right foot/ankle. Patient states that yesterday she was weed eating when she rolled her right ankle, inverting the ankle. She states that she has been ambulatory since then but has had pain over the lateral aspect of the foot to the arch of her foot. She states that she is noted a little bit of swelling in this area but it does not track up the leg. She has been ambulatory since then but is painful to walk. She states that she has been wearing shoes this morning and the arch supports seems to help her symptoms. She is on her feet a lot at work and wants to make sure there is nothing serious going on. On arrival, patient is hemodynamically stable and in no acute distress. She has tenderness palpation over the lateral aspect of her right forefoot with some mild swelling in this area. She also has some mild tenderness over the posterior lateral malleolus. No tenderness over the insertion site of the plantar fascia to the heel. Pulses intact and sensation and motor function grossly intact to the foot. No other injuries are appreciated. Differential diagnosis includes, but is not limited to: Ankle sprain, ankle fracture, foot bone fracture, soft tissue injury/other ligamentous injury, retained foreign body, among others. Patient's workup in the emergency department included: X-rays of the right foot and ankle. 1000 mg of oral Tylenol was given. Patient states that she took Motrin last night and this morning. X-rays interpreted by me personally. No acute fracture or dislocation. See radiology reports for final details. On reassessment, patient remains stable condition. Her workup is most consistent with an ankle sprain. We will provide her with a walking boot and give her follow-up with Dr. Gandara with orthopedic surgery if symptoms do not improve. She was instructed to take Tylenol or ibuprofen for symptomatic relie f. Return precautions were given. All questions were answered. She demonstrated understanding and was in agreement with this plan. She was then discharged from the emergency department in stable condition. Critical Care Critical Care Time Critical Care Time: No
[2025-02-24] MEDS: ACETAMINOPHEN 500MG TAB 1000 MG PO (10:30)
[2025-02-24 10:31] VITALS: BP 118/74; PULSE 87; RESP 16; O2SAT 99
[2025-02-24 10:39] VITALS: BP 118/74; PULSE 88; RESP 17; TEMP 36.6; O2SAT 98
--- NOTE | 2025-02-24 10:40 | PC.NURSE ---
Applied walking boot and educated pt on placement, wearing boot, RICE, and d/c instructions
== END 2025-02-24 10:42 | disposition home or self-care (01) ==
PROVIDERS: Emergency Provider Student in an Organized Health Care Education/Training Program; PCP Family Medicine
DX: S93.401A Sprain of unspecified ligament of right ankle, initial encounter (principal); X50.1XXA Overexertion from prolonged static or awkward postures, initial encounter
CPT/HCPCS: 73600; 73620; 99284

== ENCOUNTER 2025-10-16 15:27 | Outpatient (CLI) | payer OTHER, SELFPAY ==
--- NOTE | 2025-10-16 15:29 | XR_ITS ---
PROCEDURE INFORMATION: Exam: XR Left Shoulder Exam date and time: 10/16/2025 3:31 PM Age: 50 years old Clinical indication: Pain; Shoulder; Left; Additional info: Left shoulder pain TECHNIQUE: Imaging protocol: Radiologic exam of the left shoulder. Views: 2 or more views. COMPARISON: No relevant prior studies available. FINDINGS: Bones/joints: Normal anatomic alignment. The bone density is normal for this patient's age. Widening of the acromial humeral interval (19 mm). Small 10 mm inferior acromial spur is suggested. No acutely displaced fractures. No joint dislocation. No aggressive osseous lesions. Soft tissues: No acute findings in the included segments of the chest. No acute soft tissue findings. IMPRESSION: 1. Small 10 mm inferior acromial spur is suggested. 2. Concern for a small to moderate glenohumeral joint effusion.
== END 2025-10-16 23:59 | disposition home or self-care (01) ==
LOC: RAD 15:28
PROVIDERS: PCP Family Medicine; Visit Provider Student in an Organized Health Care Education/Training Program
DX: M25.512 Pain in left shoulder (principal); M75.82 Other shoulder lesions, left shoulder; R93.6 Abnormal findings on diagnostic imaging of limbs
CPT/HCPCS: 73030